=== PATIENT | female | born 1960 | race Caucasian/White ===

== ENCOUNTER 2023-03-16 07:00 | Outpatient (RCR) | payer OTHER, SELFPAY | END 2023-03-21 16:04 | disposition home or self-care (01) | LOC: RPT 07:00 | PROVIDERS: ATTENDING PHYSICIAN Orthopaedic Surgery; PRIMARYCARE PHYSICIAN Nurse Practitioner Adult Health | DX: M76.892 Other specified enthesopathies of left lower limb, excluding foot (principal); Z73.6 Limitation of activities due to disability | CPT/HCPCS: 97010; 97110; 97140 ==

== ENCOUNTER 2023-03-24 16:08 | Outpatient (RCR) | payer OTHER, SELFPAY | END 2023-03-25 16:11 | disposition home or self-care (01) | LOC: RPT 16:08 | PROVIDERS: ATTENDING PHYSICIAN Orthopaedic Surgery; PRIMARYCARE PHYSICIAN Nurse Practitioner Adult Health | DX: M76.892 Other specified enthesopathies of left lower limb, excluding foot (principal); Z73.6 Limitation of activities due to disability | CPT/HCPCS: 97010; 97110 ==

== ENCOUNTER 2023-12-19 17:03 | Emergency (ER) | payer OTHER, SELFPAY ==
[2023-12-19 17:09] VITALS: BP 127/83
--- NOTE | 2023-12-19 17:34 | ED.SKININJ ---
HPI-Injury
General
Chief Complaint: Bite
Time Seen by Provider: 12/19/23 17:24
History of Present Illness-Injury
Initial Injury comments:
Patient is a 63-year-old woman with history of depression presenting to the emergency department with a bite. Patient states that she has had her period for over 20 years. Has gone to the vet and is an indoor parent only. She was cleaning his
cage when he bit her finger. She pulled her hand out of the cage but the bite was so strong that it was still on her hand. She did get 2 bites. Bleeding did stop. It did not go through her finger. She does have some difficulty with flexing her
dip. No swelling. No trauma elsewhere. She did not fall or hit her head. She is not on any blood thinners
Phy Exam
Physical Exam
Physical Exam:
GENERAL: in no acute distress
HEENT: normocephalic, extraocular movements intact, moist oral mucosa
NECK: normal inspection
RESPIRATORY: no respiratory distress, clear to auscultation bilaterally
CARDIOVASCULAR: regular rate and rhythm
ABDOMEN/: soft, non-distended, non-tender to palpation, no rebound or guarding
EXTREMITIES: Right hand second digit with small superficial bite to the dorsal aspect but has multiple skin tear like bites and another bite at the palmar aspect that is more of a puncture. No tendon involvement. No flexor tendon tenderness. No
swelling. Strength intact though some limitations at the distal IP joint. Normal sensation though she does have some paresthesias at the distal tip. No pain with extension. no nailbed involvement
NEUROLOGIC: awake and alert, moves all extremities
SKIN: warm
Course
Orders/Labs/Results
Orders:
Orders
12/19/23 17:33
Thumb/Finger 2 View Rt [CR Finger(s)/thumb Min 2 Vw Rt] Urgent
Comment:
Reason For Exam: right index finger bite
12/19/23 17:43
Doxycycline [Vibramycin] 100 mg PO NOW STA
12/19/23 17:44
Amoxicillin 875 mg/Clav 125 mg [Augmentin 875 mg/125 mg] 1 tablet PO NOW STA
Tetanus/Diphth/Acelpertussis [Adacel] 0.5 ml IM .ONCE ONE
Vital Signs
Initial and Last Documented VS:
Initial Vital Signs
Temp Pulse Resp BP Pulse Ox
98.2 F 63 16 127/83 97
12/19/23 17:09 12/19/23 17:09 12/19/23 17:09 12/19/23 17:09 12/19/23 17:09
Last Documented Vital Signs
Temp Pulse Resp BP Pulse Ox
98.2 F 63 16 127/83 97
12/19/23 17:09 12/19/23 17:09 12/19/23 17:12/19/23 17:09 12/19/23 17:09
MDM/Problems Addressed
Differential Diagnosis Includes:
Patient is a 63-year-old woman presenting to the emergency department after her parrot bit her finger. Vitals are unremarkable and exam does show 2 bites as described above. Concern for fracture given some tenderness underlying the dorsal aspect
proximal phalanx. Exam not consistent with flexor tenosynovitis or infection. No nail involvement. Will obtain x-ray. Will washout the wound and start antibiotics. Based off prior studies patient will need doxycycline. Given the hand
involvement we will also add Augmentin. Will update tetanus. X-ray per my interpretation with no obvious fracture. Strict return precautions given. Patient will follow-up with PCP/hand surgeon as needed.
*Critical Care Note
Total Time (30-74mins, 75-104mins- exclusive of procedures): Not Applicable
ED Attending Note
-
Portions of this chart may have been created with voice recognition software.� Occasional wrong word or��sound alike� substitutions may have occurred due to the inherent limitations of voice recognition software.
Discharge Plan
Departure
Patient Disposition: Home (Routine Discharge)
Date of Disposition: 12/19/23
Time of Disposition: 18:21
Patient with high blood pressure during this ER visit?: No
Discharge Problem:
Bitten by parrot
Instructions: Animal Bites (DC), Wound Care (DC)
Prescriptions:
New
doxycycline hyclate 100 mg capsule
100 mg PO BID 5 Days Qty: 10 0RF
amoxicillin-pot clavulanate 875-125 mg tablet
1 tab PO BID 5 Days Qty: 10 0RF
Referrals:
Marcy Borges CRNP [Family Provider] -
Efrain Norton MD [Active] -
Activity Restrictions/Additional Instructions:
You were seen in the Emergency Department today for apparent bite. Please take the antibiotics as prescribed to prevent infection. Please wash your hands with soap and water and keep the area covered. Please follow-up with the hand surgeon as
discussed.
We would like for you to follow up with your primary care physician for further evaluation. If you experience fever, worsening of your symptoms, or develop any other new or concerning symptoms, please return to the Emergency Department immediately.
Please see the attached sheet for additional information.
Interventions
Interventions:
ED-Skin Assessment Last Done: 12/19/23 17:25
Discharge Date and Time
Print Language: LATVIAN
[2023-12-19] MEDS: ADACEL 0.5 ML IM (17:54)
[2023-12-19] MEDS: VIBRAMYCIN 100 MG PO (17:54)
[2023-12-19] MEDS: AUGMENTIN 875 MG/125 MG 1 TABLET PO (17:54)
== END 2023-12-19 18:27 | disposition home or self-care (01) ==
LOC: EMR 17:03
PROVIDERS: EMERGENCY PHYSICIAN Student in an Organized Health Care Education/Training Program; FAMILY PHYSICIAN Nurse Practitioner Adult Health
DX: S61.250A Open bite of right index finger without damage to nail, initial encounter (principal); R20.2 Paresthesia of skin; W61.01XA Bitten by parrot, initial encounter; Z23 Encounter for immunization; F32.A Depression, unspecified
CPT/HCPCS: 99283; 90471; 73140; 90715

== ENCOUNTER → 2024-03-14 06:57 | Outpatient (REF) | payer OTHER, SELFPAY | LOC: WDC 06:57 | PROVIDERS: ATTENDING PHYSICIAN Nurse Practitioner Adult Health | DX: Z12.31 Encounter for screening mammogram for malignant neoplasm of breast (principal) | CPT/HCPCS: 77063; 77067 ==

== ENCOUNTER → 2025-03-16 14:41 | Outpatient (REF) | payer OTHER, SELFPAY | LOC: WDC 14:41 | PROVIDERS: ATTENDING PHYSICIAN Nurse Practitioner Adult Health | DX: Z12.31 Encounter for screening mammogram for malignant neoplasm of breast (principal) | CPT/HCPCS: 77063; 77067 ==